=== PATIENT | male | born 1950 | race Caucasian/White ===

== ENCOUNTER 2023-08-05 06:28 | Outpatient (RCR) | payer OTHER, SELFPAY | END 2023-08-05 23:59 | disposition home or self-care (01) | LOC: RPT 06:28 | PROVIDERS: ATTENDING PHYSICIAN Family Medicine; FAMILY PHYSICIAN Family Medicine | DX: M19.011 Primary osteoarthritis, right shoulder (principal); M25.511 Pain in right shoulder; Z73.6 Limitation of activities due to disability | CPT/HCPCS: 97162; 97530 ==

== ENCOUNTER 2023-09-14 11:05 | Outpatient (RCR) | payer OTHER, SELFPAY | END 2023-09-14 23:59 | disposition home or self-care (01) | LOC: RPT 11:05 | PROVIDERS: ATTENDING PHYSICIAN Family Medicine; FAMILY PHYSICIAN Family Medicine | DX: M19.011 Primary osteoarthritis, right shoulder (principal); M25.511 Pain in right shoulder | CPT/HCPCS: 97010; 97110; 97140 ==

== ENCOUNTER → 2023-10-05 13:05 | Outpatient (REF) | payer OTHER, SELFPAY | LOC: RAD 13:05 | PROVIDERS: ATTENDING PHYSICIAN Orthopaedic Surgery Hand Surgery; FAMILY PHYSICIAN Family Medicine | DX: S05.50XA Penetrating wound with foreign body of unspecified eyeball, initial encounter (principal) | CPT/HCPCS: 70030 ==

== ENCOUNTER 2023-10-12 10:04 | Outpatient (RCR) | payer OTHER, SELFPAY | END 2023-10-12 23:59 | disposition home or self-care (01) | LOC: RPT 10:04 | PROVIDERS: ATTENDING PHYSICIAN Family Medicine; FAMILY PHYSICIAN Family Medicine | DX: M19.011 Primary osteoarthritis, right shoulder (principal); M25.511 Pain in right shoulder; Z73.6 Limitation of activities due to disability; R20.2 Paresthesia of skin; M62.81 Muscle weakness (generalized) | CPT/HCPCS: 97010; 97110; 97112; 97140 ==

== ENCOUNTER → 2023-10-14 12:25 | Outpatient (REF) | payer OTHER, SELFPAY ==
[2023-10-14 15:08] LABS: PSA, Total - Diagnostic 2.79 ng/ml (0.0-4.0)
== END ==
LOC: REG 12:25
PROVIDERS: ATTENDING PHYSICIAN Specialist
DX: Z12.5 Encounter for screening for malignant neoplasm of prostate (principal)
CPT/HCPCS: 36415; 84153

== ENCOUNTER 2023-11-07 09:59 | Outpatient (RCR) | payer OTHER, SELFPAY | END 2023-11-07 23:59 | disposition home or self-care (01) | LOC: RPT 09:59 | PROVIDERS: ATTENDING PHYSICIAN Family Medicine; FAMILY PHYSICIAN Family Medicine | DX: M19.011 Primary osteoarthritis, right shoulder (principal); M25.511 Pain in right shoulder; Z73.6 Limitation of activities due to disability; M62.81 Muscle weakness (generalized) | CPT/HCPCS: 97010; 97110; 97140 ==

== ENCOUNTER 2023-12-05 11:16 | Outpatient (RCR) | payer OTHER, SELFPAY | END 2023-12-05 23:59 | disposition home or self-care (01) | LOC: RPT 11:16 | PROVIDERS: ATTENDING PHYSICIAN Family Medicine; FAMILY PHYSICIAN Family Medicine | DX: M19.011 Primary osteoarthritis, right shoulder (principal); M25.511 Pain in right shoulder; Z73.6 Limitation of activities due to disability; M62.81 Muscle weakness (generalized); R20.2 Paresthesia of skin | CPT/HCPCS: 97010; 97110; 97140 ==

== ENCOUNTER → 2023-12-23 13:17 | Outpatient (REF) | payer OTHER, SELFPAY | LOC: RAD 13:17 | PROVIDERS: ATTENDING PHYSICIAN Internal Medicine Critical Care Medicine; FAMILY PHYSICIAN Family Medicine | DX: J98.6 Disorders of diaphragm (principal) | CPT/HCPCS: 71046; 76000 ==

== ENCOUNTER 2024-01-16 12:39 | Emergency (ER) | payer OTHER, SELFPAY ==
[2024-01-16 13:03] VITALS: BP 99/71
[2024-01-16 13:37] LABS: % Basophils 0.3 % (0-2); % Eosinophils 2.3 % (0-6); % Immature Granulocytes 0.5 % (0-0.5); % Lymphocytes 26.5 % (20.5-51.1); % Monocytes 10.9 % (1.7-9.3); % Neutrophils 59.5 % (42.2-75.2); Absolute Eosinophils 0.2 10^3/uL (0-0.7); Absolute Lymphocytes 1.8 10^3/uL (1.2-3.4); Absolute Monocytes 0.7 10^3/uL (0.1-0.6); Absolute Neutrophils 3.9 10^3/uL (1.4-6.5); Hematocrit 40.3 % (39.0-52.0); Mean Corp Hgb Conc. 34.7 g/dL (33.0-37.0); Mean Corpuscular Volume 86.5 fL (80.0-94.0); Mean Platelet Volume 8.5 fL (7.4-10.4); Nucleated Red Blood Cells % 0 % (-); Platelet Count 262 10^3/uL (130-400); Red Blood Cell Count 4.66 10^6/uL (4.70-6.10); Red Cell Dist. Width 13.2 % (11.5-14.5); White Blood Cell Count 6.6 10^3/uL (4.8-10.8)
[2024-01-16 13:49] LABS: ALT (SGPT) 30 U/L (0-50); AST (SGOT) 30 U/L (17-59); Albumin 4.1 g/dl (3.5-5.0); Alkaline Phosphatase 93 U/L (38-126); Blood Urea Nitrogen 11 mg/dl (9-20); Calcium 9.5 mg/dl (8.4-10.2); Carbon Dioxide 24 mmol/L (22-30); Chloride 102 mmol/L (98-107); Glucose 169 mg/dl (70-99); Potassium 4.3 mmol/L (3.5-5.1); Sodium 134 mmol/L (135-145); Total Bilirubin 0.6 mg/dl (0.2-1.3); Total Protein 6.6 g/dl (6.3-8.2); eGFR > 60.00
[2024-01-16 13:59] LABS: NT-proBNP 46.3 pg/ml; Troponin I < 0.012 ng/ml
[2024-01-16 16:32] VITALS: BP 115/77
== END 2024-01-16 18:57 ==
LOC: EMR 12:39
PROVIDERS: Emergency Medicine
DX: R06.02 Shortness of breath (principal); R11.10 Vomiting, unspecified; Z53.21 Procedure and treatment not carried out due to patient leaving prior to being seen by health care provider
CPT/HCPCS: 99281; 80053; 83880; 84484; 85025; 93005

== ENCOUNTER → 2024-06-27 10:17 | Outpatient (REF) | payer OTHER, SELFPAY | LOC: RCS 10:17 | PROVIDERS: ATTENDING PHYSICIAN Nuclear Medicine Nuclear Cardiology; FAMILY PHYSICIAN Student in an Organized Health Care Education/Training Program | DX: I25.10 Atherosclerotic heart disease of native coronary artery without angina pectoris (principal) | CPT/HCPCS: 93306 ==

== ENCOUNTER → 2024-08-23 06:27 | Day surgery (SDC) | payer OTHER, SELFPAY | LOC: GI 06:27 | PROVIDERS: ATTENDING PHYSICIAN Internal Medicine | DX: Z12.11 Encounter for screening for malignant neoplasm of colon (principal); K57.30 Diverticulosis of large intestine without perforation or abscess without bleeding; K63.5 Polyp of colon; Z80.0 Family history of malignant neoplasm of digestive organs; Z83.719 Family history of colon polyps, unspecified | CPT/HCPCS: 45385; 88305 ==

== ENCOUNTER → 2024-10-24 11:29 | Outpatient (REF) | payer OTHER, SELFPAY ==
[2024-10-24 13:09] LABS: PSA, Total - Screen 3.22 ng/ml (0.0-4.0)
== END ==
LOC: REG 11:29
PROVIDERS: ATTENDING PHYSICIAN Specialist; FAMILY PHYSICIAN Student in an Organized Health Care Education/Training Program
DX: Z12.5 Encounter for screening for malignant neoplasm of prostate (principal)
CPT/HCPCS: 36415; G0103

== ENCOUNTER → 2024-10-30 08:40 | Outpatient (REF) | payer OTHER, SELFPAY ==
[2024-10-30 09:57] LABS: ALT (SGPT) 41 U/L (0-50); AST (SGOT) 33 U/L (17-59); Albumin 4.2 g/dl (3.5-5.0); Alkaline Phosphatase 83 U/L (38-126); Blood Urea Nitrogen 14 mg/dl (9-20); Calcium 9.5 mg/dl (8.4-10.2); Carbon Dioxide 25 mmol/L (22-30); Chloride 100 mmol/L (98-107); Glucose 110 mg/dl (70-99); HDL Cholesterol 60 mg/dl; LDL Cholesterol, Calculated 56 mg/dl; Potassium 4.8 mmol/L (3.5-5.1); Sodium 134 mmol/L (135-145); Total Bilirubin 0.8 mg/dl (0.2-1.3); Total Cholesterol 131 mg/dl (50-199); Total Protein 6.4 g/dl (6.3-8.2); Triglyceride 78 mg/dl (10-149); Very Low Density Lipoprotein 15 mg/dl (0-30); eGFR > 60.00
== END ==
LOC: REG 08:40
PROVIDERS: ATTENDING PHYSICIAN Nuclear Medicine Nuclear Cardiology; FAMILY PHYSICIAN Student in an Organized Health Care Education/Training Program
DX: I25.10 Atherosclerotic heart disease of native coronary artery without angina pectoris (principal); E78.2 Mixed hyperlipidemia
CPT/HCPCS: 36415; 80053; 80061

== ENCOUNTER → 2025-03-08 14:51 | Outpatient (REF) | payer OTHER, SELFPAY | LOC: RCS 14:51 | PROVIDERS: ATTENDING PHYSICIAN Nuclear Medicine Nuclear Cardiology; FAMILY PHYSICIAN Student in an Organized Health Care Education/Training Program | DX: I25.10 Atherosclerotic heart disease of native coronary artery without angina pectoris (principal); I35.0 Nonrheumatic aortic (valve) stenosis | CPT/HCPCS: 93306 ==

== ENCOUNTER 2025-04-16 01:29 | Observation (INO) | payer OTHER, SELFPAY ==
[2025-04-15 18:16] VITALS: BP 158/90
--- NOTE | 2025-04-15 20:28 | ED.GENMED ---
History of Present Illness
General
Chief Complaint: Bowel Problem
Time Seen by Provider: 04/15/25 20:27
History of Present Illness
History of Present Illness:
FOCUSED PAST MEDICAL HISTORY
- The patient has a history of CAD, hyperlipidemia
REVIEW OF OLD RECORDS
- I reviewed colonoscopy report from earlier this year in which a polyp was removed' there was significant looping of the colon', diverticulosis also noted
Note:
CHIEF COMPLAINT(S)
Constipation.
HISTORY OF PRESENT ILLNESS
The patient is a 74-year-old male with a history of constipation, presenting with 23 days without a significant bowel movement. He reports past constipation issues but not for the last five years. He has not had a prior rectal fecal impaction, and
previous episodes of constipation have resolved. The patient describes the sensation of severe chest discomfort likely related to constipation, stating, 'its just pushing up on my chest,' possibly exacerbated by a known large hiatal hernia. Physical
examination will include a rectal examination to assess for fecal impaction.
CHRONIC MEDICAL CONDITIONS SIGNIFICANTLY AFFECTING CARE
Chronic conditions affecting care: Hiatal hernia.
PHYSICAL EXAM
- General: The patient appears somewhat generally weak and debilitated
- HEENT: Moist oral mucosa
- Cardiovascular: No murmurs, normal heart rate, regular rhythm, No chest wall tenderness
- Pulmonary: No respiratory distress, breath sounds are clear and equal
- Abdomen: Soft but perhaps slightly distended, no tenderness, there is a rectal fecal impaction that I can barely feel at the tip of my finger
- Neurologic: Fair strength all extremities, no coordination deficits
- Psychiatric: Appropriate mental status, normal insight and judgement
- Extremities: Nontender, no edema, moves all extremities equally
- Skin: Excoriated skin/rash in the right periorbital region and nasal region
PLAN
The plan is to administer an enema and instruct the patient to retain it for as long as possible before sitting on a commode to pass stool. Further evaluation and management will depend on the outcomes of this intervention.
DIFFERENTIAL DIAGNOSIS
- Constipation with fecal impaction
- Large bowel obstruction
- Ileus
- Hiatal hernia exacerbation
- Gastroparesis
- Electrolyte imbalance affecting bowel motility
- Colonic inertia
- Mechanical intestinal obstruction
- Diverticulitis
- Rectal prolapse
SUMMARY OF ENCOUNTER
The patient presented to the emergency department for evaluation of prolonged constipation. A rectal examination indicates fecal impaction which could not be manually relieved. The patients symptoms are contributing to discomfort due to pressure on
the chest, exacerbated by a hiatal hernia. An enema is planned as the initial intervention.
MEDICAL DECISION MAKING
- Data:
Category 3: Discussion of management with nursing staff regarding administration of an enema.
- Risk: Prescription management with an enema for fecal impaction, considering the patients prolonged constipation and exacerbating hiatal hernia symptoms.
DIAGNOSIS
-Rectal fecal impaction
SUMMARY OF ENCOUNTER
The patient, a 74-year-old male, presented to the emergency department with severe constipation, having experienced 23 days without significant bowel movements. Physical examination noted fecal impaction upon a rectal exam. The patient experienced
chest discomfort likely due to constipation and a known large hiatal hernia exacerbating the symptoms. An enema was administered, but manual relief of the impaction was not achieved. A discussion with the patient highlighted the potential of
conducting a CT scan to rule out other alarming conditions, leading to the decision to order a CT scan of the abdomen.
PLAN
A CT scan of the abdomen was ordered to rule out concerning findings that could be contributing to the constipation and associated symptoms.
MEDICATION RECONCILIATION
An enema was administered to the patient in the emergency department.
MEDICAL DECISION MAKING
-Complexity of Data Reviewed: Chronic conditions affecting care include a history of hiatal hernia. Differential diagnosis considered includes constipation with fecal impaction, large bowel obstruction, ileus, hiatal hernia exacerbation,
gastroparesis, electrolyte imbalance affecting bowel motility, colonic inertia, mechanical intestinal obstruction, diverticulitis, and rectal prolapse.
-Data:
Category 3
Discussion of management included contemplating further imaging with a CT scan to ensure no other alarming conditions were present.
DIAGNOSIS
- K59.00 Constipation, unspecified
The patient had no significant improvement earlier therefore CT was obtained which shows redundant sigmoid colon. This was seen by colonoscopy and noted by Dr. Sullivan in the past. CT does show moderate stool burden and there was some concern for the
possibility of developing stercoral colitis. I therefore added blood work which shows a white count of 12.8. We added magnesium citrate. He had a very small bowel movement and feels slightly improved but family does not feel comfortable him going
home
Past History
Past History
ED Past Medical History: CAD, HTN, Hypercholesterolemia and CA
ED Past Surgical History: Cardiac and Other (Rhinoplasty)
Social History
Tobacco: Non-smoker
Alcohol: None
Drug: None
Personal:
Living: with family
Employment: Retired
Family History
Family History: Other (Noncontributory)
Phy Exam
Physical Exam
Physical Exam:
See HPI
Course
Orders/Labs/Results
Orders:
Orders
04/15/25 22:29
CT Abd/pel Without Iv Or Oral Urgent
Comment:
Reason For Exam: abd pain; constip; empty rectal vault; redund loop
04/15/25 23:03
Magnesium Citrate [Citroma] 300 ml PO ONCE ONE
04/15/25 23:32
Complete Blood Count/With Diff Urgent
Comprehensive Metabolic Panel Urgent
Abnormal Lab Results
04/15/25
23:32
WBC 12.8 H 10^3/uL
(4.8-10.8)
RBC 4.61 L 10^6/uL
(4.70-6.10)
Absolute Neuts (auto) 10.4 H 10^3/uL
(1.4-6.5)
Absolute Lymphs (auto) 1.1 L 10^3/uL
(1.2-3.4)
Absolute Monos (auto) 1.1 H 10^3/uL
(0.1-0.6)
Neutrophils % 81.5 H %
(42.2-75.2)
Lymphocytes % 8.9 L %
(20.5-51.1)
Sodium 130 L mmol/L
(135-145)
Creatinine 0.6 L mg/dL
(0.7-1.3)
Glucose 120 H mg/dl
(70-99)
04/15/25 23:32
04/15/25 23:32
Vital Signs
Initial and Last Documented VS:
Initial Vital Signs
Temp Pulse Resp BP Pulse Ox
36.4 C 66 16 158/90 94
04/15/25 18:16 04/15/25 18:16 04/15/25 18:16 04/15/25 18:16 04/15/25 18:16
Last Documented Vital Signs
Temp Pulse Resp BP Pulse Ox
36.4 C 68 16 158/90 98
04/15/25 18:16 04/15/25 21:10 04/15/25 18:16 04/15/25 18:16 04/15/25 21:10
*Pulse Oximetry
SaO2: 94
Oxygen Mode of Delivery: Room air
Patient hypoxic: no
*Critical Care Note
Total Time (30-74mins, 75-104mins- exclusive of procedures): Not Applicable
ED Attending Note
-
Portions of this chart may have been created with voice recognition software.� Occasional wrong word or��sound alike� substitutions may have occurred due to the inherent limitations of voice recognition software.
Discharge Plan
Departure
Patient Disposition: Admit
Date of Disposition: 04/16/25
Time of Disposition: 00:04
Presentation/result/management discussed w/ accepting MD/DO: Hospitalist
Patient with high blood pressure during this ER visit?: Yes
Discharge Problem:
Constipation
Prescriptions:
No Action
aspirin [Aspir-Low] 81 MG tablet,delayed release (DR/EC)
81 mg PO DAILY
Coral Calcium
2 tab PO DAILY
Patient Comments:
two in am one at bedtime
alfuzosin 10 MG tablet extended release 24 hr
25 mg PO DAILY
coenzyme [id number] E 1 CAP capsule
1 cap PO DAILY
Lactobac. rhamnosus GG-inulin 1 EACH capsule, sprinkle
1 ea PO DAILY
loratadine-pseudoephedrine 240 MG/10 MG tablet extended release 24 hr
1 tab PO DAILY
nitroglycerin 0.4 MG tablet, sublingual
0.4 mg sublingual [id number] PRN (Reason: pain)
montelukast 10 MG tablet
10 mg PO DAILY
atorvastatin 40 MG tablet
40 mg PO QPM Qty: 90 3RF
clopidogrel 75 MG tablet
75 mg PO DAILY Qty: 90 3RF
metoprolol succinate 25 MG tablet extended release 24 hr
25 mg PO DAILY Qty: 90 3RF
lisinopril 2.5 MG tablet
2.5 mg PO DAILY Qty: 90 3RF
ascorbic acid (vitamin C) [Vitamin C] 500 MG tablet
1,000 mg PO BID Qty: 56 0RF
Rx Instructions:
Take 1,000 mg twice a day for 14 days
albuterol sulfate 1 PUFF HFA aerosol inhaler
2 puff inhalation R [id number] PRN (Reason: shortness of breath) Qty: 1 0RF
zinc sulfate 220 MG capsule
220 mg PO DAILY Qty: 14 0RF
Rx Instructions:
Take 220 mg daily for 14 days
cholecalciferol (vitamin D3) 1,000 UNITS tablet
2,000 units PO DAILY Qty: 28 0RF
Rx Instructions:
Take 2,000 units daily for 14 days
melatonin 5 MG tablet
5 mg PO HS Qty: 14 0RF
Rx Instructions:
Take 5 mg daily at bedtime for 14 days
Referrals:
UNKNOWN - PT DOES,NOT KNOW [Family Provider]
Interventions
Interventions:
*Risk Screen - Suicide Last Done: 04/15/25 18:16
*General Assessment Last Done: 04/15/25 21:10
*Neglect/Abuse Screening Last Done: 04/15/25 18:16
*ED- Fall Risk Assessment Last Done: 04/15/25 21:10
*ED COVID-19 Vaccine History Last Done: 04/15/25 21:10
MR-Bgleiq-Dgjtezjtip Assessment Last Done: 04/15/25 21:10
Discharge Date and Time
Print Language: ARMENIAN
[2025-04-15 23:39] LABS: Hematocrit 39.9 % (39.0-52.0); Hemoglobin 13.9 g/dL (13.0-18.0); Mean Corp Hgb Conc. 34.8 g/dL (33.0-37.0); Mean Corpuscular Volume 86.6 fL (80.0-94.0); Nucleated Red Blood Cells % 0 % (-); Platelet Count 234 10^3/uL (130-400); Red Cell Dist. Width 13.0 % (11.5-14.5)
[2025-04-15] MEDS: CITROMA 300 ML PO (23:42)
[2025-04-16 00:01] LABS: ALT (SGPT) 39 U/L (0-50); AST (SGOT) 35 U/L (17-59); Albumin 4.1 g/dl (3.5-5.0); Alkaline Phosphatase 70 U/L (38-126); Blood Urea Nitrogen 12 mg/dl (9-20); Calcium 9.6 mg/dl (8.4-10.2); Carbon Dioxide 25 mmol/L (22-30); Chloride 101 mmol/L (98-107); Glucose 120 mg/dl (70-99); Potassium 4.7 mmol/L (3.5-5.1); Sodium 130 mmol/L (135-145); Total Protein 6.6 g/dl (6.3-8.2); eGFR > 60.00
[2025-04-16 00:29] VITALS: BP 135/81
--- NOTE | 2025-04-16 00:51 | HPS.HSE ---
Family Physician
-
Family Physician: NOT KNOW UNKNOWN - PT DOES
Chief Complaint
-
Constipation
History of Present Illness
This is an 74-year-old past medical history significant for CAD, hypertension, hyperlipidemia, BPH who presents to the emergency department with constipation.
Patient reported constipation for the last 3 days. He denies nausea or vomiting. Denies any recent diarrhea. Denies any recent melena or hematochezia. He was very uncomfortable today.
Over the last 3 days the patient has had increased intake of meats including beef, chicken, meat loaf which is more than usual for him. This in the setting of celebrating a birthday. He feels some abdominal distention as well. Denies recent
episodes of constipation although family reports he has had bouts in the past and has been on MiraLAX. Patient stated that he did take MiraLAX yesterday as well as 2 times today without any improvement.
Patient had a colonoscopy in August which showed a single polyp which was removed with repeat colonoscopy in 3 years. He was started on mag citrate.
In the emergency department there was an attempted a rectal disimpaction but it was not excessive. Enema was given without any improvement.
He was afebrile, blood pressure was 135/81 with a pulse of 77 and was satting 95% on room air.
White count was 12.2 hemoglobin and platelets were normal. Sodium was 130 electrolyte BUN/creatinine were otherwise normal.
CT of the abdomen pelvis shows a redundant sigmoid colon with moderate rectal distal colonic stool burden. No evidence of obstruction. There is mild stranding along the upper rectum suggestive of inflammation.
Medical History
Past Medical History
Past Medical History: Reports Other
Additional Past Medical History:
Hypertension
CAD
Hyperlipidemia
BPH
BENSON on CPAP
Past Surgical History: Reports Other
Social History
Tobacco: Non-smoker
Alcohol: None
Drug: None
Family History
Family History: Not pertinent
Allergies / Home Medications
Allergies reflects when Allergies were last updated in [facility].
Home Medications with original date entered in [facility]
Allergy/Medication List:
Allergies
Allergy/AdvReac Type Severity Reaction Status Date / Time
No Known Allergies Allergy Verified 01/16/24 13:06
Home Medications
Coral Calcium 2 tab PO DAILY Supplement 08/22/08
aspirin 81 mg tablet,delayed release (Aspir-Low) 81 mg PO DAILY Blood clot prevention/tx 08/22/08
alfuzosin 10 mg tablet,extended release 24 hr 25 mg PO DAILY Urinary issue 08/27/15
coenzyme [id number] E 100 mg-100 unit capsule 1 cap PO DAILY Supplement 08/27/15
Lactobacil rhamnosus GG 10 billion cell-inulin 200 mg sprinkle capsule 1 ea PO DAILY probiotic 08/28/15
loratadine-pseudoephedrine ER 10 mg-240 mg tablet,extended [id number] 1 tab PO DAILY CONGESTION 11/29/20
montelukast 10 mg tablet 10 mg PO DAILY Allergies 11/29/20
nitroglycerin 0.4 mg sublingual tablet 0.4 mg sublingual [id number] PRN pain 11/29/20
atorvastatin 40 mg tablet 40 mg PO QPM #90 tabs 12/01/20
lisinopril 2.5 mg tablet 2.5 mg PO DAILY #90 tabs 12/01/20
metoprolol succinate 25 mg tablet,extended release 24 hr 25 mg PO DAILY #90 tabs 12/01/20
zaleplon 25 mg PO HS 04/16/25
Review of Systems
-
Constitutional: Reports No Symptoms
EENT: Reports No Symptoms
Respiratory: Reports No Symptoms
Cardiac: Reports No Symptoms
Abdomen/GI: Reports Constipated
: Reports No Symptoms
Musculoskeletal: Reports No Symptoms
Skin: Reports No Symptoms
Neurological: Reports No Symptoms
Endocrine: Reports No Symptoms
Hematologic/Lymphatic: Reports No Symptoms
Psych: Reports No Symptoms
Physical Exam
Vital Signs
Vital Signs
Temp Pulse Resp BP Pulse Ox
97.5 F 77 18 135/81 95
04/15/25 18:16 04/16/25 00:29 04/16/25 00:29 04/16/25 00:29 04/16/25 00:29
Physical Exam
General: Well Developed, Well Nourished and No Apparent Distress
HEENT: NormoCephalic, Moist mucous membranes and Atraumatic
Respiratory: Clear
Cardiac: S1/S2 and Regular Rhythm; No Murmur or Rub
GI: Soft, Non Tender, Non Distended and Normal Bowel Sounds; No Organomegaly
Rectal: Deferred by Provider
Musculoskeletal: No Clubbing, No Cyanosis and No Edema
Skin: No Rash
Neuro: Nonfocal/grossly intact
Laboratory Results
-
04/15/25 23:32
04/15/25 23:32
Laboratory Results
Total Bilirubin 0.9 mg/dl (0.2-1.3) 04/15/25 23:32
AST 35 U/L (17-59) 04/15/25 23:32
ALT 39 U/L (0-50) 04/15/25 23:32
Alkaline Phosphatase 70 U/L (38-126) 04/15/25 23:32
Data Reviewed
-
CT Scan: Report Reviewed by me
Lab Data: Labs Reviewed by me
Old Records: Reviewed
Impression/Plan
-
IMPRESSION:
74-year-old here with 3 days of constipation in the setting of increased mix productive intake for observation. He has a history of redundant sigmoid colon and had a colonoscopy in September which showed a single polyp and no other findings.
Attempted MiraLAX at home without any efficacy. Was given enema in the ED also without any efficacy. He is now status post dose of mag citrate. CT scan shows no acute findings and is consistent with constipation.
PLAN:
Constipation -likely from bowel impaction. Unable to reduced with digital rectal examination due to location.
-Admit to MedSurg observation
-Clear liquid diet for now
-Continue with laxatives. s/p mag citrate. Will continue that daily. Continue with lactulose every 3-4 hours until bowel movement
-Suppository every 48 hours prn,
- antiemetics
- repeat enema with milk of molasses enema in am if no bm
BPH -denies any new urinary symptoms
- Continue alfuzosin
CAD
- Continue aspirin/statin
- continue metoprolol
- Continue lisinopril 2.5
BENSON
- home CPAP HS
DVT prophylaxis�SCDs
CODE STATUS�full code
--- NOTE | 2025-04-16 02:24 | ED.ADDNOTE ---
ED Addendum
ED Addendum
ED Addendum Note:
After planned admission to the hospital, and after seen by hospitalist, the patient had a large bowel movement and strongly preferred to go home. I discharged the patient from the [facility] and he is not admitted to the hospital.
[2025-04-16 02:39] VITALS: BP 142/84
== END 2025-04-16 02:31 | disposition home or self-care (01) ==
LOC: ED 01:29
PROVIDERS: ADMITTING PHYSICIAN Internal Medicine; EMERGENCY PHYSICIAN Emergency Medicine
DX: K56.41 Fecal impaction (principal); R07.89 Other chest pain; K44.9 Diaphragmatic hernia without obstruction or gangrene; I25.10 Atherosclerotic heart disease of native coronary artery without angina pectoris; E78.00 Pure hypercholesterolemia, unspecified; Q43.8 Other specified congenital malformations of intestine; I10 Essential (primary) hypertension; I25.2 Old myocardial infarction; G47.33 Obstructive sleep apnea (adult) (pediatric); N40.0 Benign prostatic hyperplasia without lower urinary tract symptoms; Z86.0100 Personal history of colon polyps, unspecified
CPT/HCPCS: 74176; 80053; 85025; 99284; G0378